=== PATIENT | female | born 1960 | race African-American/Black ===

== ENCOUNTER 2018-10-14 17:24 | Emergency (ER) | payer SELFPAY ==
[2018-10-14] MEDS ORDERED: ORPHENADRINE CITRATE 60 MG/2 ML ML IM ONE (18:28)
[2018-10-14] MEDS ORDERED: KETOROLAC TROMETHAMINE 60 MG/2 ML VIAL IM ONE (18:28)
[2018-10-14] MEDS ORDERED: methylPREDNISolone ACETATE 80 MG/ML VIAL IM ONE (18:28)
--- NOTE | 2018-10-14 18:35 | Diagnostic Imaging Report ---
VAHID ADAMS [facility] [id number] [facility] [address] [id number] Report Submission Date: Oct 14, 2018 6:34:14 PM ENROLLMENT COUNSELOR Patient Study Name: FERDINAND DOBBS Date: Oct 14, 2018 5:42:12 PM ENROLLMENT COUNSELOR Modality Type: DX Gender: F Description: PELVIS : 60 Institution: [facility] Physician: VAHID ADAMS Examination: Plain film right hip History: RT HIP PAIN X 1 WEEK, NO KNOWN INJURY ( Comparison exams: None provided Findings: 2 views of the right hip demonstrate normal cortical margins. Bursal region calcification. No fracture no dislocation. No soft tissue abnormality. Intrapelvic surgical clips in phleboliths. Impression: No acute osseous abnormality. Electronically signed on Oct 14, 2018 6:34:14 PM ENROLLMENT COUNSELOR by: Paul ROSADO
--- NOTE | 2018-10-14 18:43 | Diagnostic Imaging Report ---
VAHID ADAMS [facility] [address] [facility] [address] [id number] Report Submission Date: Oct 14, 2018 6:36:52 PM PASTRY DECORATOR Patient Study Name: FERDINAND DOBBS Date: Oct 14, 2018 5:40:27 PM PASTRY DECORATOR Modality Type: DX Gender: F Description: SPINE : 60 Institution: [facility] Physician: VAHID ADAMS Examination: Plain film lumbar spine History: LOWER BACK PAIN X 1 WEEK, NO KNOWN INJURY Findings: 3 views of the lumbar spine demonstrates degenerative spurring. No pathologic anterior compression. Degenerative wedging of T12. Disc space narrowing. Facet degenerative changes. No soft tissue abnormalities. Impression: Multilevel degenerative changes. No pathologic compression deformity. Electronically signed on Oct 14, 2018 6:36:52 PM PASTRY DECORATOR by: Paul ROSADO
== END 2018-10-14 18:47 | disposition home or self-care (01) ==
LOC: ED 17:24
DX: M79.604 Pain in right leg (principal)
CPT/HCPCS: 72100; 73502; 96372; 99283; 99284; J1040; J1885; J2360